=== PATIENT | male | born 1945 ===

== ENCOUNTER 2021-02-21 13:21 | Emergency (ER) | payer OTHER, BC ==
--- OUTSIDE RECORDS SUMMARY | 2021-02-21 13:24 | XMS REPORT | Continuity of Care Document ---
:1945 Author Organization [facility] t Address [address] [place] [place] [address] Care Team Providers Name Role Phone Nina Mart Primary Care Physician Singer TAYLOR Attending Clinician Only, Test Attending Clinician Unavailable oSn BARROW, A Attending Clinician Nancy CLINE Attending Clinician Unavailable Inder PARK, T Attending Clinician Unavailable Amaya MANCUSO Attending Clinician AMAYA Attending Clinician Unavailable Payers Payer Name Policy Type Policy Number Effective Date Expiration Date S our MEDICARE PART A \T\ [id number] 2012 B 00:00:00 BCBS TRADITIONAL [id number] 2014 00:00:00 Problems Condition Condition Condition Status Onset Resolution Last Treating Co mments Source Name Details Category Date Date Treatment Clinician Date No known No known Disease Unive rs active active ity of problems problems [facility] Allergies, Adverse Reactions, Alerts Allergy Allergy Status Severity Reaction(s) Onset Inactive Treating Comm ents Source Name Type Date Date Clinician Iodine Adverse Active Info Not [facility] Reaction Available [facility] NO KNOWN Drug Active Univers ALLERGIE Class ity of S [facility] Social History Social Habit Start Date Stop Date Quantity Comments Source Exposure to Not sure [facility] SARS-CoV-2 (event) Medica l Branch Sex Assigned At [birth year] [facility] [place] [facility] 00:00:00 Medical Branch Smoking Status Start Date Stop Date Source Unknown if ever smoked [facility] Medications Ordered Filled Start Stop Current Ordering Indication Dosage Frequency Signature Comments Components Source Medication Medication Date Date Medication? Clinician (SIG) Name Name lidocaine 2020- No 5mL 5 mL, Univer s 1% 11-26 Infiltrati ity of (XYLOCAINE) 00:45: 00:45 on, ONCE, [place] 10 mg/mL (1 00 :00 1 dose, Medic al %) Sat Branch injection 5 11/25/20 at mL 1945, EDWINA lidocaine 2020- No 5mL 5 mL, Univer s 1% 11-26 Infiltrati ity of (XYLOCAINE) 00:45: 00:45 on, ONCE, [place] 10 mg/mL (1 00 :00 1 dose, Medic al %) Sat Branch injection 5 11/25/20 at mL 1945, EDWINA No known No Univers medications 9-11 ity of 18:21: [address] No known No Univers medications 9-11 ity of 18:21: [address] No known No Univers medications 9-11 ity of 18:21: [address] No known No Univers medications 9-11 ity of 18:21: [address] No known No Univers medications 9-11 ity of 18:21: [address] Atenolol Atenolol Yes Na Mart [address] [facility] Cialis Cialis Yes Na Mart [address] [facility] Diflorasone Diflorasone Yes Na Mart [address] [facility] Diacetate Diacetate applicatio [facility] No known No Univers medications ity [facility] No known No Univers medications ity [facility] Immunizations Ordered Filled Immunization Date Status Comments Sourc e Immunization Name Name Td 2020-11-25 Completed [facility] 00:00:00 [facility] Td 2020-11-25 Completed [facility] 00:00:00 [facility] Td 2020-11-25 Completed [facility] 00:00:00 [place] [facility] Td 2020-11-25 Completed [facility] 00:00:00 [place] [facility] Td 2020-11-25 Completed [facility] 00:00:00 [place] [facility] Td 2020-11-25 Completed [facility] 00:00:00 [place] [facility] Td 2020-11-25 Completed [facility] of 00:00:00 [facility] Branch Vital Signs Vital Name Observation Time Observation Value Comments Source Body temperature 2020-12-08 14:47:00 36.83 Ceci [facility] [place] [facility] Respiratory rate 2020-12-08 14:47:00 18 /min [facility] [place] [facility] Body weight 2020-12-08 14:47:00 90.719 kg [facility] [place] [facility] Oxygen saturation in 2020-12-08 14:47:00 99 /min University of Arterial blood by [place] [employer] kennedy Pulse oximetry Branch Systolic blood 2020-12-08 14:47:00 154 mm[Hg] Univer sity of pressure [place] [facility] Diastolic blood 2020-12-08 14:47:00 73 mm[Hg] Unive rsity of pressure [place] [facility] Heart rate 2020-12-08 14:47:00 66 /min [facility] [place] [facility] Systolic blood 2020-11-25 23:21:00 153 mm[Hg] Univer sity of pressure [place] [facility] Diastolic blood 2020-11-25 23:21:00 89 mm[Hg] Unive rsity of pressure [place] [facility] Heart rate 2020-11-25 23:21:00 88 /min [facility] [place] [facility] Body temperature 2020-11-25 23:21:00 37.44 Ceci [facility] [place] [facility] Respiratory rate 2020-11-25 23:21:00 18 /min [facility] [place] [facility] Body weight 2020-11-25 23:21:00 90.719 kg [facility] [place] [facility] Oxygen saturation in 2020-11-25 23:21:00 98 /min University of Arterial blood by [place] [employer] kennedy Pulse oximetry Branch Procedures Procedure Date / Time Performed Performing Clinician Rina e NOTICE OF PRIVACY 2020-12-08 14:45:19 Doctor Unassigned, No [facility] [place] [facility] Name Medical Branch CONSENT/REFUSAL FOR 2020-12-08 14:44:57 Doctor Unassigned, No [facility] [place] DIAGNOSIS AND Name Medical [place] TREATMENT CONSENT/REFUSAL FOR 2020-11-26 00:36:41 Doctor Unassigned, No [facility] [place] DIAGNOSIS AND Name [facility] Branch TREATMENT NOTICE OF PRIVACY 2020-11-26 00:35:52 Doctor Unassigned, No [facility] ED LACERATION REPAIR 2020-11-26 00:10:00 [facility] Encounters Start End Encounter Admission Attending Care Care Encounter Source Date/Time Date/Time Type Type Clinicians Facility Department ID 2021-01-16 Emergency [facility] [id number] Univers 01:06:56 ity [facility] 2020-12-08 2020-12-08 Emergency Singer [facility] [id number] Univers 09:51:00 10:37:00 Johnnie Manzo [id number] i ty [facility] [id number] [facility] [id number] [facility] 084 [place] 2020-11-30 2020-11-30 Laboratory Only, Adc Test [facility] [id number] Univers 11:18:21 11:33:21 Only Mike Cline [id number] ity [facility] [id number] [facility] [id number] [facility] 353 Branch 2020-11-30 2020-11-30 Outpatient R [facility] [id number] Univers 11:30:00 11:30:00 MIKE adam [facility] 2020-11-30 2020-11-30 Letter MAIKEL Loving [id number] Univers 00:00:00 00:00:00 (Out) Dori NGUYEN [id number] it [facility] [id number] [place] [id number] [facility] 019 Branch 2020-11-25 2020-11-25 Emergency Amaya [facility] [id number] Univers 18:23:00 20:00:00 Sailaja [place] [id number] i Valerio [id number] [facility] [id number] [place] [address] Branch 2020-11-25 2020-11-25 Emergency X AMAYA, [facility] ERT [id number] Univers 18:23:00 18:23:00 SAILAJA adam [facility] 2020-11-15 2020-11-15 Outpatient [facility] [id number] [facility] 2020-08-28 2020-08-28 Outpatient [facility] [id number] [facility] 2020-02-25 2020-02-25 Outpatient [facility] [id number] [facility] 2020-02-23 2020-02-23 Outpatient [facility] [id number] [facility] 2020-02-21 2020-02-21 Outpatient [facility] [id number] [facility] 2020-01-11 2020-01-11 Outpatient [facility] [id number] [facility] 2020-01-07 2020-01-07 Outpatient [facility] [id number] [facility] 2019-12-10 2019-12-10 Outpatient [facility] [id number] [facility] 2019-08-20 2019-08-20 [facility] [id number] 13:40:00 13:40:00 t [employer] [place] [facility] Clinics 2019-08-12 2019-08-12 [facility] [id number] 16:44:00 16:44:00 t [employer] [facility] Out[facility] Clin[facility] 2019-02-26 2019-02-26 [facility] [id number] [facility] 10:37:00 10:37:00 t [employer] [facility] 2019-01-05 2019-01-05 [facility] [id number] 08:40:00 08:40:00 t [employer] [facility] 2018-09-28 2018-09-28 [facility] [id number] [facility] 15:46:00 15:46:00 t [employer] [facility] 2017-06-02 2017-06-02 [facility] [id number] 14:00:00 14:00:00 [employer] [facility] Out[facility] Clinics Results This patient has no known results.
[2021-02-21] MEDS ORDERED: NA CHLORIDE 0.9% 1,000 ML ONE (14:10)
[2021-02-21 14:49] LABS: Absolute Lymphocytes (CBC) 1.2 K/uL (0.7-4.9); Basophils % 1.1 % (0-1.3); Hematocrit 35.8 % (39.6-49.0); Lymphocytes % 15.6 % (15.3-44.8); MPV 9.4 fL (7.6-11.3); Protime INR 1.38; RBC Red Blood Cell Count 3.79 M/uL (4.33-5.43)
[2021-02-21 14:58] LABS: ALT/SGPT 36 U/L (12-78); AST/SGOT 236 U/L (15-37); Albumin 2.3 g/dL (3.4-5.0); Alkaline Phosphatase 206 U/L (45-117); BUN Blood Urea Nitrogen 12 mg/dL (7-18); Bicarbonate 26 mmol/L (21-32); Bilirubin Direct 2.8 mg/dL (0-0.2); Bilirubin Total 4.2 mg/dL (0.2-1.0); Creatine Phosphokinase 76 U/L (39-308); Glucose Level 102 mg/dL (74-106); Potassium 3.8 mmol/L (3.5-5.1); Protein, Total 6.6 g/dL (6.4-8.2); Sodium Level 137 mmol/L (136-145); Troponin (Emerg Dept Use Only) < 0.02 ng/mL (0.0-0.045)
[2021-02-21 16:37] LABS: Urine Appearance CLEAR (Clear); Urine Blood NEGATIVE (Negative); Urine Color DK YELLOW (Yellow); Urine Glucose NEGATIVE (Negative); Urine Protein NEGATIVE (Negative); Urine pH 6.5 (5.0-7.0)
[2021-02-21 16:58] LABS: Urine Bilirubin 1+ (Negative); Urine Microscopic Reflex ORDER UMIC
--- NOTE | 2021-02-21 17:03 | ER ---
Nurse's Notes [facility] Name: Robert Allen Age: 75 yrs Sex: Male : 1945 Arrival Date: 02/21/2021 Time: 13:22 Bed 19 Private MD: Diagnosis: Generalized weakness Presentation: 02/21 13:30 Chief complaint: Patient states: [facility]. Mart [facility] virtual visit told them to come to the ER. Very fatigued and weak since helping a esperanza do heavy lifting a few weeks ago. Blood in urine this morninig at [facility]. Coronavirus screen: Vaccine status: Client denies travel out of the [place] in the last 14 days. Ebola Screen: Patient negative for fever greater than or equal to 101.5 degrees Fahrenheit, and additional compatible Ebola Virus Disease symptoms Patient denies exposure to infectious person. Patient denies travel to an Ebola-affected area in the 21 days before illness onset. No acute neurological deficit is noted. Pre-hospital glucose is not applicable to this patient. Initial Sepsis Screen: Does the patient meet any 2 criteria? No. Patient's initial sepsis screen is negative. Does the patient have a suspected source of infection? No. Patient's initial sepsis screen is negative. Risk Assessment: Do you want to hurt yourself or someone else? Patient reports no desire to harm self or others. 13:30 Method Of Arrival: Ambulatory [facility] 13:30 Acuity: SOFIA 3 [facility] 17:10 Onset of symptoms is unknown. 3 Triage Assessment: 13:36 The onset of the patients symptoms was January 22, 2021 at 12:00. General: Appears in [facility] no apparent distress. comfortable, well groomed, well developed, well nourished, Behavior is calm, cooperative, appropriate for age. Pain: Denies pain. Neuro: No deficits noted. Reports Pt moves all extremities well, ambulates independently. . Historical: - Allergies: 13:35 No Known Allergies; [facility] - Home Meds: 13:35 atenolol 25 mg Oral tab [Active]; [facility] - PMHx: 13:35 Hypertensive disorder; [facility] 14:00 Cirhhosis; 3 - Immunization history:: Adult Immunizations up to date, Client reports receiving the 2nd dose of the Covid vaccine. - Social history:: Smoking status: Patient denies any tobacco usage or history of. Screenin:45 Abuse screen: Denies threats or abuse. Nutritional screening: No deficits noted. ll3 Tuberculosis screening: No symptoms or risk factors identified. Fall Risk IV access (20 points). Total Patrick Fall Scale indicates No Risk (0-24 pts). Assessment: 13:45 General: Appears in no apparent distress. comfortable, Behavior is calm, cooperative. ll3 Pain: Denies pain. Neuro: Level of Consciousness is awake, alert, obeys commands, Oriented to person, place, time, situation, Reports weakness since States weakness started one month ago. Cardiovascular: Patient's skin is warm and dry. Respiratory: Airway is patent Respiratory effort is even, unlabored, Respiratory pattern is regular, symmetrical. GI: Abdomen is flat, distended, Abd is soft and non tender X 4 quads. : Reports blood in urine Denies burning with urination, discharge, inability to void, pain. Derm: Skin is pink, warm \T\ dry. 14:45 Reassessment: Patient appears in no apparent distress at this time. No changes from ll3 previously documented assessment. Patient and/or family updated on plan of care and expected duration. Pain level reassessed. Patient is alert, oriented x 3, equal unlabored respirations, skin warm/dry/pink. 16:04 Reassessment: Patient appears in no apparent distress at this time. No changes from ll3 previously documented assessment. Patient and/or family updated on plan of care and expected duration. Pain level reassessed. Patient is alert, oriented x 3, equal unlabored respirations, skin warm/dry/pink. 17:08 Reassessment: Patient appears in no apparent distress at this time. No changes from ll3 previously documented assessment. Patient and/or family updated on plan of care and expected duration. Pain level reassessed. Patient is alert, oriented x 3, equal unlabored respirations, skin warm/dry/pink. Vital Signs: 13:30 BP 127 / 63; Pulse 70; Resp 16; Temp 98.4; Pulse Ox 100% ; Weight 95.25 kg; Height 5 jh5 ft. 11 in. (180.34 cm); 14:30 BP 140 / 64; Pulse 69; Resp 17; Pulse Ox 100% on R/A; ll3 14:30 BP 140 / 65; Pulse 70; Resp 18; Pulse Ox 100% on R/A; ll3 15:45 BP 141 / ???; Pulse 70; Resp 18; Pulse Ox 100% on R/A; ll3 17:08 BP 139 / 67; Pulse 71; Resp 12; Pulse Ox 100% on R/A; ll3 13:30 Body Mass Index 29.29 (95.25 kg, 180.34 cm) [facility] ED Course: 13:22 Patient arrived in ED. ds1 13:35 Triage completed. 5 13:40 Umu Hutchison, RN is Primary Nurse. ll3 13:51 Ru Cline MD is Attending Physician. 3 14:27 CK Sent. 5 14:27 Basic Metabolic Panel Sent. 5 14:27 CBC with Diff Sent. 5 14:27 LFT's Sent. [facility] 14:27 Magnesium Sent. [facility] 14:27 PT-INR Sent. [facility] 14:27 Troponin (emerg Dept Use Only) Sent. [facility] 14:27 Initial lab(s) drawn, by ut, sent to lab. EKG done, by ED staff, reviewed by Ru Alessandro Cline MD. Inserted saline lock: 20 gauge in right forearm, using aseptic technique. Blood collected. 14:28 Patient has correct armband on for positive identification. Bed in low position. Call [facility] light in reach. Side rails up X 1. Adult w/ patient. Warm blanket given. ekg monitor tech on. Pulse ox on. NIBP on. 17:09 No provider procedures requiring assistance completed. ll3 17:11 Arm band placed on. ll3 17:34 IV discontinued, intact, bleeding controlled, No redness/swelling at site. Pressure 3 dressing applied. Administered Medications: 14:26 Drug: NS 0.9% 1000 ml Route: IV; Rate: 1 bolus; Site: right antecubital; ll3 15:30 Follow up: Response: No adverse reaction; IV Status: Completed infusion ll3 Outcome: 17:02 Discharge ordered by . sp3 17:34 Discharged to home ambulatory, with family. ll3 17:34 Condition: stable 17:34 Discharge instructions given to patient, family, Instructed on discharge instructions, follow up and referral plans. Demonstrated understanding of instructions, follow-up care. 17:35 Patient left the ED. ll3 Signatures: Ana Paula Bone ds1 Tati Gill 5 Ru Cline MD MD sp3 Janice Fletcher RN RN jh5 Umu Hutchison RN RN ll3
--- NOTE | 2021-02-21 17:04 | EDPHYS ---
Physician Documentation [facility] Name: Robert Allen Age: 75 yrs Sex: Male : 1945 Arrival Date: 02/21/2021 Time: 13:22 Bed 19 Private MD: ED Physician Ru Cline HPI: 02/21 14:18 This 75 yrs old Male presents to ER via Ambulatory with complaints of Weakness, Blood sp3 in Urine. 14:18 75-year-old male with a history of hypertension and liver cirrhosis from a prior sp3 alcohol history now presents to the ED for dark urine. Patient was doing heavy lifting while helping a friend approximately 1 month ago where he had dark urine and generalized weakness which is slowly improved. Patient discussed with her PCP today who ordered repeat testing. 2 to 3 days ago patient again had heavy physical labor and his urine again returned to be dark. He had gone to [facility] prior to arrival after virtual visit with his PCP to give urine and blood which point his urine was dark and possibly bloody and therefore they came straight to the ED for evaluation. Results from [facility] are not yet available. Patient denies headache, neck pain, chest pain, back pain, shortness of breath, bleeding anywhere else, melena or dark stools, syncope, near syncope, neuro symptoms, any other ROS at this time.. Historical: - Allergies: 13:35 No Known Allergies; 5 - Home Meds: 13:35 atenolol 25 mg Oral tab [Active]; [facility] - PMHx: 13:35 Hypertensive disorder; [facility] 14:00 Cirhhosis; ll3 - Immunization history:: Adult Immunizations up to date, Client reports receiving the 2nd dose of the Covid vaccine. - Social history:: Smoking status: Patient denies any tobacco usage or history of. ROS: 14:20 Constitutional: Negative for fever, chills, and weight loss. sp3 14:21 Constitutional: Negative for fever, chills, and weight loss, Eyes: Negative for injury, sp3 pain, redness, and discharge, ENT: Negative for injury, pain, and discharge, Neck: Negative for injury, pain, and swelling, Cardiovascular: Negative for chest pain, palpitations, and edema, Respiratory: Negative for shortness of breath, cough, wheezing, and pleuritic chest pain, Abdomen/GI: Negative for abdominal pain, nausea, vomiting, diarrhea, and constipation, Back: Negative for injury and pain, MS/Extremity: Negative for injury and deformity, Skin: Negative for injury, rash, and discoloration, Neuro: Negative for headache, weakness, numbness, tingling, and seizure, Psych: Negative for depression, anxiety, suicide ideation, homicidal ideation, and hallucinations, Allergy/Immunology: Negative for hives, rash, and allergies, Endocrine: Negative for neck swelling, polydipsia, polyuria, polyphagia, and marked weight changes. 14:21 All other systems are negative. Exam: 14:22 Constitutional: This is a well developed, well nourished patient who is awake, alert, sp3 and in no acute distress. Head/Face: Normocephalic, atraumatic. Eyes: Pupils equal round and reactive to light, extra-ocular motions intact. Lids and lashes normal. Conjunctiva and sclera are non-icteric and not injected. Cornea within normal limits. Periorbital areas with no swelling, redness, or edema. Neck: Trachea midline, no thyromegaly or masses palpated, and no cervical lymphadenopathy. Supple, full range of motion without nuchal rigidity, or vertebral point tenderness. No Meningismus. Chest/axilla: Normal chest wall appearance and motion. Nontender with no deformity. No lesions are appreciated. Cardiovascular: Regular rate and rhythm with a normal S1 and S2. No gallops, murmurs, or rubs. Normal PMI, no JVD. No pulse deficits. Respiratory: Lungs have equal breath sounds bilaterally, clear to auscultation and percussion. No rales, rhonchi or wheezes noted. No increased work of breathing, no retractions or nasal flaring. Abdomen/GI: Soft, non-tender, with normal bowel sounds. No distension or tympany. No guarding or rebound. No evidence of tenderness throughout. Back: No spinal tenderness. No costovertebral tenderness. Full range of motion. Skin: Warm, dry with normal turgor. Normal color with no rashes, no lesions, and no evidence of cellulitis. MS/ Extremity: Pulses equal, no cyanosis. Neurovascular intact. Full, normal range of motion. Neuro: Awake and alert, GCS 15, oriented to person, place, time, and situation. Cranial nerves II-XII grossly intact. Motor strength 5/5 in all extremities. Sensory grossly intact. Cerebellar exam normal. Normal gait. Psych: Awake, alert, with orientation to person, place and time. Behavior, mood, and affect are within normal limits. 14:23 ECG was reviewed by the Attending Physician. EKG demonstrates normal sinus rhythm at 70 sp3 bpm with normal intervals, normal QRS, normal axis, normal ST/T-segment without evidence of ischemia. Vital Signs: 13:30 BP 127 / 63; Pulse 70; Resp 16; Temp 98.4; Pulse Ox 100% ; Weight 95.25 kg; Height 5 5 ft. 11 in. (180.34 cm); 14:30 BP 140 / 64; Pulse 69; Resp 17; Pulse Ox 100% on R/A; ll3 14:30 BP 140 / 65; Pulse 70; Resp 18; Pulse Ox 100% on R/A; ll3 15:45 BP 141 / ???; Pulse 70; Resp 18; Pulse Ox 100% on R/A; ll3 17:08 BP 139 / 67; Pulse 71; Resp 12; Pulse Ox 100% on R/A; ll3 13:30 Body Mass Index 29.29 (95.25 kg, 180.34 cm) [facility] MDM: 13:56 Patient medically screened. sp3 14:22 Data reviewed: vital signs, nurses notes. ED course: 75-year-old male with possible sp3 dehydration versus hematuria versus rhabdomyolysis. Will obtain blood work, and administer IV fluids. Disposition based on CK, creatinine, and remainder of blood work and patient course. And not highly suspicious for sepsis, renal failure, ACS, any other critical findings at this time.. 17:01 ED course: CK is normal and urine shows no blood. Remainder of laboratory values show sp3 no significant abnormality. Will discharge patient home to PCP follow-up this time.. 12 14:03 Order name: Basic Metabolic Panel; Complete Time: 16: sp3 02/21 14:03 Order name: CBC with Diff; Complete Time: 16: sp3 02/21 14:03 Order name: LFT's; Complete Time: 16: sp3 02/21 14:03 Order name: Magnesium; Complete Time: 16: sp3 02/21 14:03 Order name: PT-INR; Complete Time: 16: sp3 02/21 14:03 Order name: Troponin (emerg Dept Use Only); Complete Time: 16:01 sp3 02/21 14:03 Order name: EKG; Complete Time: 14:04 sp3 02/21 14:03 Order name: Cardiac monitoring; Complete Time: 14:27 sp3 02/21 14:03 Order name: EKG - Nurse/Tech; Complete Time: 14:27 sp3 02/21 14:03 Order name: CK; Complete Time: 16:01 sp3 02/21 16:18 Order name: UA sp3 02/21 17:01 Order name: Urine Microscopic Only [facility] 02/21 14:03 Order name: IV Saline Lock; Complete Time: 14:27 sp3 02/21 14:03 Order name: Labs collected and sent; Complete Time: 14:27 sp3 02/21 14:03 Order name: O2 Per Protocol; Complete Time: 14:05 sp3 02/21 14:03 Order name: O2 Sat Monitoring; Complete Time: 14:05 sp3 02/21 16:03 Order name: Urine Dipstick-Ancillary (obtain specimen); Complete Time: 16:18 iw 02/21 16:12 Order name: Urine Dipstick-Ancillary (obtain specimen); Complete Time: 16:18 sp3 Administered Medications: 14:26 Drug: NS 0.9% 1000 ml Route: IV; Rate: 1 bolus; Site: right antecubital; ll3 15:30 Follow up: Response: No adverse reaction; IV Status: Completed infusion ll3 Disposition Summary: 02/21/21 17:02 Discharge Ordered Location: Home sp3 Condition: Stable sp3 Diagnosis - Generalized weakness sp3 Followup: sp3 - With: Private Physician - When: - Reason: Recheck today's complaints Discharge Instructions: - Discharge Summary Sheet sp3 - Dehydration, Elderly sp3 Forms: - Medication Reconciliation Form sp3 - Thank You Letter sp3 - Antibiotic Education sp3 - Prescription Opioid Use sp3 - SBAR form ll3 Signatures: Dispatcher [employer] Halle Contreras RN RN iw Patel, Setul, MD MD sp3 Janice Fletcher RN RN 5 Umu Hutchison RN RN 3 Corrections: (The following items were deleted from the chart) 17:03 16:13 UA MICROSCOPIC+U.LAB.BRZ ordered. EDMS EDMS
[2021-02-21 17:25] LABS: Urine Bacteria <20 /HPF (NONE SEEN); Urine RBC <5 /HPF (NONE SEEN)
[2021-02-21 17:52] VITALS: TEMP 98.4; O2SAT 100
[2021-02-21 17:56] VITALS: BP 139/67
== END 2021-02-21 17:35 | disposition home or self-care (01) ==
LOC: ER 13:21
DX: R53.1 Weakness (principal); I10 Essential (primary) hypertension
CPT/HCPCS: 93005; 85025; 80048; 36415; 83735; 82550; 85610; 80076; 84484; 96360; 99284; J7030; 81003; 81015